=== PATIENT | female | born 1985 | race Caucasian/White ===

== ENCOUNTER 2017-08-24 18:34 | Emergency (ER) | payer OTHER ==
[~2017-08-24] VITALS: Ht 162.6 cm; Wt 74.8 kg
[2017-08-24] MEDS ORDERED: EPIPEN0.3 MG/0.1 IM (18:56)
[2017-08-24] MEDS ORDERED: LEVOXYL25 MCG PO (18:56)
[2017-08-24] MEDS ORDERED: HYDROCODONE-AP1 EAC6 PO (20:32)
[2017-08-24 20:35] VITALS: BP 92/53
== END 2017-08-24 20:35 | disposition home or self-care (01) ==
LOC: M.ERS 18:34
DX: R10.2 Pelvic and perineal pain (principal); M54.5 Low back pain; E03.9 Hypothyroidism, unspecified; Z91.030 Bee allergy status

== ENCOUNTER → 2017-09-12 | Outpatient (CLI) | payer OTHER ==
[~2017-09-12] MED LIST: EPIPEN0.3 MG/0.1 IM; HYDROCODONE-AP1 EAC6 PO; LEVOXYL25 MCG PO
== END ==
LOC: M.LAB 07:22
DX: Z31.41 Encounter for fertility testing (principal); E03.9 Hypothyroidism, unspecified

== ENCOUNTER → 2017-09-19 | Outpatient (CLI) | payer OTHER ==
[2017-09-19 07:58] LABS: HEMATOCRIT 40.3 % (37.0-47.0); HEMOGLOBIN 13.8 gm/dL (12.0-15.0); MCH 31.6 pg (26.0-34.0); MCHC 34.1 g/dL (28.0-37.0); MCV 92.6 fL (80.0-100.0); RBC 4.35 mil/uL (4.20-5.00); RDW-CV 12.4 % (10.5-14.5); WBC 3.9 thou/uL (4.0-11.0)
[2017-09-19 08:03] LABS: ALBUMIN 3.6 g/dL (3.4-5.0); ALKALINE PHOSPHATASE 42 U/L (46-116); ANION GAP 9 mmol/L (7-16); BUN 21 mg/dL (7-18); CALCIUM 8.8 mg/dL (8.5-10.1); CHLORIDE 104 mmol/L (98-107); CHOLESTEROL 140 mg/dL (<200); CO2 27 mmol/L (21-32); CREATININE 0.8 mg/dL (0.6-1.3); GLUCOSE 85 mg/dL (70-99); HDL CHOLESTEROL 45 mg/dL (>40); LDL CHOLESTEROL 88 mg/dL (<100); POTASSIUM 4.2 mmol/L (3.5-5.1); SERUM ASSESSMENT Clear; SGOT 22 U/L (15-37); SGPT 25 U/L (30-65); SODIUM 140 mmol/L (136-145); TC:HDL 3.1 Ratio (Not establshd); TOTAL BILIRUBIN 0.4 mg/dL (<0.1-1.0); TOTAL PROTEIN 7.3 g/dL (6.4-8.2); TRIGLYCERIDE 37 mg/dL (<150); VLDL 7 mg/dL (<40)
[2017-09-19 09:08] LABS: % SATURATION 27 % (20-39); IRON 94 ug/dL (50-175)
== END ==
LOC: M.LAB 07:34
PROVIDERS: Nurse Practitioner Family
DX: Z13.220 Encounter for screening for lipoid disorders (principal); L65.9 Nonscarring hair loss, unspecified; R53.83 Other fatigue; E03.9 Hypothyroidism, unspecified

== ENCOUNTER → 2017-09-25 | Outpatient (CLI) | payer OTHER | LOC: M.LAB 12:18 | DX: Z32.00 Encounter for pregnancy test, result unknown (principal) ==

== ENCOUNTER → 2017-11-09 | Outpatient (CLI) | payer OTHER | LOC: M.LAB 11:42 → M.CT 16:30 | DX: J32.9 Chronic sinusitis, unspecified (principal); H65.21 Chronic serous otitis media, right ear; E03.9 Hypothyroidism, unspecified; E28.2 Polycystic ovarian syndrome ==

== ENCOUNTER → 2018-03-13 | Outpatient (CLI) | payer OTHER | LOC: M.LAB 16:19 | DX: E03.9 Hypothyroidism, unspecified (principal) ==

== ENCOUNTER → 2018-03-28 | Outpatient (CLI) | payer OTHER ==
[2018-03-28 12:50] LABS: ABSOLUTE BASOPHILS 0.1 thou/uL (0.0-0.2); ABSOLUTE EOSINOPHILS 0.3 thou/uL (0.0-0.7); ABSOLUTE LYMPHOCYTES 1.3 thou/uL (0.8-5.3); ABSOLUTE MONOCYTES 0.4 thou/uL (0.0-1.2); ABSOLUTE NEUTROPHILS 3.9 thou/uL (1.6-8.1); EOSINOPHILS 4.5 %; HEMATOCRIT 39.2 % (37.0-47.0); HEMOGLOBIN 13.2 gm/dL (12.0-15.0); LYMPHOCYTES 22.1 %; MCH 31.4 pg (26.0-34.0); MCHC 33.6 g/dL (28.0-37.0); MCV 93.6 fL (80.0-100.0); MONOCYTES 6.7 %; MPV 8.8 fl. (7.2-11.1); NUCLEATED RBCS 0 /100WBC; PLATELET COUNT* 328 thou/uL (150-400); POLYS 65.7 %; RBC 4.19 mil/uL (4.20-5.00); RDW-CV 12.1 % (10.5-14.5); WBC 5.9 thou/uL (4.0-11.0)
[2018-03-28 16:47] LABS: ALBUMIN 3.3 g/dL (3.4-5.0); CALCIUM 8.8 mg/dL (8.5-10.1); CREATININE 0.7 mg/dL (0.6-1.3); POTASSIUM 4.1 mmol/L (3.5-5.1); TOTAL BILIRUBIN 0.3 mg/dL (<0.1-1.0); TOTAL PROTEIN 6.9 g/dL (6.4-8.2)
== END ==
LOC: M.LAB 06:43
PROVIDERS: Nurse Practitioner Family
DX: E03.9 Hypothyroidism, unspecified (principal); E04.1 Nontoxic single thyroid nodule; E07.89 Other specified disorders of thyroid; R00.2 Palpitations

== ENCOUNTER → 2018-03-29 | Outpatient (CLI) | payer OTHER | LOC: M.ULTRA 12:00 | DX: E04.1 Nontoxic single thyroid nodule (principal); E07.89 Other specified disorders of thyroid; R59.0 Localized enlarged lymph nodes ==

== ENCOUNTER → 2018-04-10 | Outpatient (CLI) | payer OTHER | LOC: M.LAB 08:35 | DX: E06.9 Thyroiditis, unspecified (principal) ==

== ENCOUNTER → 2018-04-26 | Outpatient (CLI) | payer OTHER | LOC: M.LAB 08:11 | DX: E06.1 Subacute thyroiditis (principal) ==

== ENCOUNTER → 2018-06-07 | Outpatient (CLI) | payer OTHER | LOC: M.LAB 07:44 | DX: E03.9 Hypothyroidism, unspecified (principal) ==

== ENCOUNTER → 2018-07-10 | Outpatient (CLI) | payer OTHER | LOC: M.LAB 08:15 | DX: E06.1 Subacute thyroiditis (principal) ==

== ENCOUNTER → 2018-09-03 | Outpatient (CLI) | payer OTHER ==
[2018-09-03 18:10] LABS: GLYCOHEMOGLOBIN (HGB A1C) 5.3 % (4.8-5.6); PROLACTIN 16.4 ng/mL (4.8-23.3); TESTOSTERONE 14 ng/dL (8-48)
[2018-09-04 05:09] LABS: RUBELLA IgG ANTIBODY* 1.84 index (Immune >0.99)
== END ==
LOC: M.LAB 08:18
PROVIDERS: Obstetrics & Gynecology Reproductive Endocrinology
DX: Z01.83 Encounter for blood typing (principal); Z11.59 Encounter for screening for other viral diseases; E28.2 Polycystic ovarian syndrome; E03.9 Hypothyroidism, unspecified

== ENCOUNTER → 2018-09-11 | Outpatient (CLI) | payer OTHER | LOC: M.LAB 15:51 | DX: Z13.21 Encounter for screening for nutritional disorder (principal); Z01.83 Encounter for blood typing ==

== ENCOUNTER → 2018-09-25 | Outpatient (CLI) | payer OTHER ==
[2018-09-26 18:09] LABS: HEPATITIS B SURFACE AG Negative (Negative)
[2018-09-27 03:09] LABS: HIV-1/HIV-2 ANTIBODY Non Reactive (Non Reactive)
[2018-09-27 14:04] LABS: HEMOGLOBIN 13.4 gm/dL (12.0-15.0); MCH 31.7 pg (26.0-34.0); MCHC 34.3 g/dL (28.0-37.0); MCV 92.5 fL (80.0-100.0); MPV 8.8 fl. (7.2-11.1); RBC 4.21 mil/uL (4.20-5.00); RDW-CV 12.8 % (10.5-14.5)
== END ==
LOC: M.LAB 15:50
PROVIDERS: Obstetrics & Gynecology Reproductive Endocrinology
DX: Z11.3 Encounter for screening for infections with a predominantly sexual mode of transmission (principal); Z13.0 Encounter for screening for diseases of the blood and blood-forming organs and certain disorders involving the immune mechanism

== ENCOUNTER → 2018-11-22 | Outpatient (CLI) | payer OTHER | LOC: M.LAB 08:15 | DX: E03.9 Hypothyroidism, unspecified (principal); Z86.39 Personal history of other endocrine, nutritional and metabolic disease ==

== ENCOUNTER → 2018-12-24 | Outpatient (CLI) | payer OTHER | LOC: M.LAB 13:51 | DX: E28.2 Polycystic ovarian syndrome (principal); M79.604 Pain in right leg ==

== ENCOUNTER → 2019-01-07 | Outpatient (CLI) | payer OTHER ==
[2019-01-07 16:25] LABS: ALBUMIN 3.6 g/dL (3.4-5.0); CREATININE 0.8 mg/dL (0.6-1.3); POTASSIUM 3.8 mmol/L (3.5-5.1); TOTAL BILIRUBIN 0.2 mg/dL (<0.1-1.0); TOTAL PROTEIN 7.2 g/dL (6.4-8.2)
== END ==
LOC: M.LAB 15:57
PROVIDERS: Internal Medicine
DX: D50.8 Other iron deficiency anemias (principal); R53.83 Other fatigue; E03.9 Hypothyroidism, unspecified

== ENCOUNTER → 2019-03-05 | Outpatient (CLI) | payer OTHER | LOC: M.LAB 10:49 | DX: Z13.21 Encounter for screening for nutritional disorder (principal); Z13.29 Encounter for screening for other suspected endocrine disorder ==

== ENCOUNTER → 2019-05-09 | Outpatient (CLI) | payer OTHER | LOC: M.LAB 16:36 | DX: E03.9 Hypothyroidism, unspecified (principal) ==

== ENCOUNTER → 2019-08-15 | Outpatient (CLI) | payer OTHER | LOC: M.LAB 11:23 | DX: E03.9 Hypothyroidism, unspecified (principal) ==

== ENCOUNTER → 2019-10-31 | Outpatient (CLI) | payer OTHER ==
[2019-10-31 14:43] LABS: ABSOLUTE BASOPHILS 0.1 thou/uL (0.0-0.2); ABSOLUTE EOSINOPHILS 0.2 thou/uL (0.0-0.7); ABSOLUTE LYMPHOCYTES 1.8 thou/uL (0.8-5.3); ABSOLUTE MONOCYTES 0.4 thou/uL (0.0-1.2); BASOPHILS 1.1 %; EOSINOPHILS 3.7 %; HEMATOCRIT 39.4 % (37.0-47.0); HEMOGLOBIN 14.2 gm/dL (12.0-15.0); LYMPHOCYTES 27.5 %; MCH 32.9 pg (26.0-34.0); MCV 91.5 fL (80.0-100.0); MONOCYTES 6.4 %; NUCLEATED RBCS 0 /100WBC; PLATELET COUNT* 294 thou/uL (150-400); POLYS 61.3 %; RBC 4.31 mil/uL (4.20-5.00); RDW-CV 12.5 % (10.5-14.5); WBC 6.5 thou/uL (4.0-11.0)
[2019-11-01 06:06] LABS: HIV-1/HIV-2 ANTIBODY Non Reactive (Non Reactive)
== END ==
LOC: M.LAB 14:04
PROVIDERS: ATTEND Obstetrics & Gynecology
DX: Z36.9 Encounter for antenatal screening, unspecified (principal)

== ENCOUNTER → 2019-12-09 | Outpatient (CLI) | payer OTHER | LOC: M.LAB 14:17 | PROVIDERS: ATTEND Internal Medicine | DX: E03.9 Hypothyroidism, unspecified (principal); Z20.828 Contact with and (suspected) exposure to other viral communicable diseases ==

== ENCOUNTER → 2020-02-18 | Outpatient (CLI) | payer OTHER ==
[2020-02-18 08:11] LABS: ABSOLUTE EOSINOPHILS 0.2 thou/uL (0.0-0.7); ABSOLUTE LYMPHOCYTES 1.5 thou/uL (0.8-5.3); ABSOLUTE MONOCYTES 0.4 thou/uL (0.0-1.2); ABSOLUTE NEUTROPHILS 5.5 thou/uL (1.6-8.1); BASOPHILS 0.5 %; EOSINOPHILS 2.5 %; HEMATOCRIT 33.8 % (37.0-47.0); HEMOGLOBIN 11.8 gm/dL (12.0-15.0); LYMPHOCYTES 19.3 %; MCH 32.6 pg (26.0-34.0); MCV 93.2 fL (80.0-100.0); MPV 7.1 fl. (7.2-11.1); NUCLEATED RBCS 0 /100WBC; PLATELET COUNT* 289 thou/uL (150-400); POLYS 72.7 %; RBC 3.63 mil/uL (4.20-5.00); WBC 7.6 thou/uL (4.0-11.0)
[2020-02-18 08:23] LABS: ALBUMIN 2.6 g/dL (3.4-5.0); ALKALINE PHOSPHATASE 59 U/L (46-116); ANION GAP 6 mmol/L (7-16); BUN 8 mg/dL (7-18); CALCIUM 7.7 mg/dL (8.5-10.1); CHLORIDE 104 mmol/L (98-107); CO2 27 mmol/L (21-32); CREATININE 0.6 mg/dL (0.6-1.3); GLUCOSE 131 mg/dL (70-99); POTASSIUM 3.5 mmol/L (3.5-5.1); SGOT 24 U/L (15-37); SGPT 21 U/L (30-65); SODIUM 137 mmol/L (136-145); TOTAL BILIRUBIN 0.3 mg/dL (<0.1-1.0); TOTAL PROTEIN 6.8 g/dL (6.4-8.2)
== END ==
LOC: M.LAB 06:48
PROVIDERS: ATTEND Obstetrics & Gynecology
DX: Z36.9 Encounter for antenatal screening, unspecified (principal)

== ENCOUNTER → 2020-03-30 | Outpatient (CLI) | payer OTHER ==
[2020-03-30 12:39] LABS: ABSOLUTE BASOPHILS 0.1 thou/uL (0.0-0.2); ABSOLUTE EOSINOPHILS 0.2 thou/uL (0.0-0.7); ABSOLUTE LYMPHOCYTES 1.4 thou/uL (0.8-5.3); ABSOLUTE MONOCYTES 0.5 thou/uL (0.0-1.2); ABSOLUTE NEUTROPHILS 5.3 thou/uL (1.6-8.1); BASOPHILS 0.8 %; EOSINOPHILS 2.2 %; HEMATOCRIT 36.8 % (37.0-47.0); HEMOGLOBIN 12.9 gm/dL (12.0-15.0); LYMPHOCYTES 18.9 %; MCH 32.5 pg (26.0-34.0); MCV 92.9 fL (80.0-100.0); MONOCYTES 6.4 %; MPV 7.2 fl. (7.2-11.1); NUCLEATED RBCS 0 /100WBC; PLATELET COUNT* 265 thou/uL (150-400); POLYS 71.7 %; RBC 3.97 mil/uL (4.20-5.00); RDW-CV 13.3 % (10.5-14.5); WBC 7.4 thou/uL (4.0-11.0)
[2020-03-30 13:08] LABS: % SATURATION 13 % (20-39); IRON 74 ug/dL (50-175)
== END ==
LOC: M.LAB 12:24
PROVIDERS: ATTEND Registered Nurse
DX: Z34.90 Encounter for supervision of normal pregnancy, unspecified, unspecified trimester (principal); R25.2 Cramp and spasm; R53.83 Other fatigue; R79.0 Abnormal level of blood mineral; Z36.9 Encounter for antenatal screening, unspecified; Z3A.00 Weeks of gestation of pregnancy not specified

== ENCOUNTER → 2020-07-02 | Outpatient (CLI) | payer OTHER | LOC: M.LAB 17:00 | PROVIDERS: ATTEND Obstetrics & Gynecology | DX: E03.9 Hypothyroidism, unspecified (principal) ==

== ENCOUNTER → 2020-07-13 | Outpatient (CLI) | payer OTHER | LOC: M.ULTRA 07:30 | PROVIDERS: ATTEND Nurse Practitioner Family | DX: R10.11 Right upper quadrant pain (principal) ==

== ENCOUNTER → 2020-07-29 | Outpatient (CLI) | payer OTHER ==
[2020-07-29 08:34] LABS: HEMATOCRIT 41.8 % (37.0-47.0); MCH 30.5 pg (26.0-34.0); MCHC 33.6 g/dL (28.0-37.0); MCV 90.8 fL (80.0-100.0); MPV 7.5 fl. (7.2-11.1); NUCLEATED RBCS 0 /100WBC; PLATELET COUNT* 307 thou/uL (150-400); RDW-CV 12.1 % (10.5-14.5); WBC 6.6 thou/uL (4.0-11.0)
[2020-07-29 08:44] LABS: ALBUMIN 3.6 g/dL (3.4-5.0); ALKALINE PHOSPHATASE 76 U/L (46-116); AMYLASE 84 U/L (25-115); ANION GAP 7 mmol/L (7-16); BUN 12 mg/dL (7-18); CHLORIDE 103 mmol/L (98-107); CHOLESTEROL 215 mg/dL (<200); CO2 30 mmol/L (21-32); CREATININE 0.8 mg/dL (0.6-1.3); GLUCOSE 88 mg/dL (70-99); HDL CHOLESTEROL 50 mg/dL (>40); LDL CHOLESTEROL 143 mg/dL (<100); POTASSIUM 4.1 mmol/L (3.5-5.1); SERUM ASSESSMENT Clear; SGOT 40 U/L (15-37); SGPT 78 U/L (30-65); SODIUM 140 mmol/L (136-145); TC:HDL 4.3 Ratio (Not establshd); TOTAL BILIRUBIN 0.4 mg/dL (<0.1-1.0); TOTAL PROTEIN 7.5 g/dL (6.4-8.2); TRIGLYCERIDE 110 mg/dL (<150); VLDL 22 mg/dL (<40)
[2020-07-29 09:14] LABS: ABSOLUTE EOSINOPHILS 1.7 thou/uL (0.0-0.7); ABSOLUTE LYMPHOCYTES 2.2 thou/uL (0.8-5.3); ABSOLUTE MONOCYTES 0.3 thou/uL (0.0-1.2); ABSOLUTE NEUTROPHILS 2.5 thou/uL (1.6-8.1)
[2020-07-29 09:15] LABS: ANISOCYTOSIS 1+; PLATELET ESTIMATE ADEQUATE; POIKILOCYTOSIS 1+
[2020-07-29 21:06] LABS: THYROID PEROXIDASE (TPO) AB < 6 IU/mL (0-34)
== END ==
LOC: M.LAB 08:07
PROVIDERS: ATTEND Family Medicine
DX: K29.70 Gastritis, unspecified, without bleeding (principal)

== ENCOUNTER → 2020-08-24 | Outpatient (CLI) | payer OTHER ==
[2020-08-24 16:24] LABS: CALCIUM 8.9 mg/dL (8.5-10.1); CREATININE 0.8 mg/dL (0.6-1.3); POTASSIUM 4.2 mmol/L (3.5-5.1); TOTAL BILIRUBIN 0.4 mg/dL (<0.1-1.0); TOTAL PROTEIN 7.8 g/dL (6.4-8.2)
[2020-08-24 16:51] LABS: % SATURATION 15 % (20-39); IRON 58 ug/dL (50-175)
[2020-08-25 10:08] LABS: IgA 151 mg/dL (87-352)
[2020-08-26 02:06] LABS: HEPATITIS B SURFACE AG Negative (Negative)
[2020-08-26 21:05] LABS: ANA INTERPRETATION Positive (())
== END ==
LOC: M.LAB 15:53
PROVIDERS: ATTEND Internal Medicine Gastroenterology
DX: R94.5 Abnormal results of liver function studies (principal)

== ENCOUNTER → 2020-09-03 | Outpatient (CLI) | payer OTHER | LOC: M.LAB 10:15 | PROVIDERS: ATTEND Family Medicine | DX: R79.89 Other specified abnormal findings of blood chemistry (principal) ==

== ENCOUNTER → 2020-10-01 | Outpatient (CLI) | payer OTHER ==
[2020-10-01 08:49] LABS: ALBUMIN 4.2 g/dL (3.4-5.0); CALCIUM 9.1 mg/dL (8.5-10.1); CREATININE 0.8 mg/dL (0.6-1.3); DIRECT BILIRUBIN 0.1 mg/dL (<0.1-0.3); POTASSIUM 4.2 mmol/L (3.5-5.1); TOTAL BILIRUBIN 0.4 mg/dL (<0.1-1.0); TOTAL PROTEIN 7.9 g/dL (6.4-8.2)
[2020-10-01 21:06] LABS: COMPLEMENT-C4 30 mg/dL (12-38)
== END ==
LOC: M.LAB 08:15
PROVIDERS: ATTEND Nurse Practitioner Family
DX: E03.9 Hypothyroidism, unspecified (principal); E78.5 Hyperlipidemia, unspecified; R94.5 Abnormal results of liver function studies; M79.641 Pain in right hand; R76.8 Other specified abnormal immunological findings in serum

== ENCOUNTER → 2020-11-19 | Outpatient (CLI) | payer OTHER | LOC: M.ULTRA 10:37 | PROVIDERS: ATTEND Nurse Practitioner Women's Health | DX: N60.02 Solitary cyst of left breast (principal); N63.20 Unspecified lump in the left breast, unspecified quadrant ==

== ENCOUNTER → 2021-03-29 | Outpatient (CLI) | payer OTHER | LOC: M.LAB 12:15 | PROVIDERS: ATTEND Internal Medicine Endocrinology, Diabetes & Metabolism | DX: E03.9 Hypothyroidism, unspecified (principal) ==

== ENCOUNTER → 2021-05-06 | Outpatient (CLI) | payer OTHER ==
[2021-05-06 15:52] LABS: ABSOLUTE EOSINOPHILS 0.3 thou/uL (0.0-0.7); ABSOLUTE LYMPHOCYTES 1.7 thou/uL (0.8-5.3); ABSOLUTE MONOCYTES 0.4 thou/uL (0.0-1.2); ABSOLUTE NEUTROPHILS 2.6 thou/uL (1.6-8.1); EOSINOPHILS 5.5 %; HEMATOCRIT 41.7 % (37.0-47.0); LYMPHOCYTES 34.3 %; MCH 30.2 pg (26.0-34.0); MCHC 33.7 g/dL (28.0-37.0); MCV 89.8 fL (80.0-100.0); MONOCYTES 7.1 %; MPV 8.3 fl. (7.2-11.1); NUCLEATED RBCS 0 /100WBC; PLATELET COUNT* 264 thou/uL (150-400); POLYS 52.1 %; RBC 4.64 mil/uL (4.20-5.00); RDW-CV 13.3 % (10.5-14.5)
[2021-05-06 16:20] LABS: ALBUMIN 3.9 g/dL (3.4-5.0); CALCIUM 8.7 mg/dL (8.5-10.1); CREATININE 0.7 mg/dL (0.6-1.3); POTASSIUM 4.4 mmol/L (3.5-5.1); TOTAL BILIRUBIN 0.4 mg/dL (<0.1-1.0); TOTAL PROTEIN 7.7 g/dL (6.4-8.2)
== END ==
LOC: M.LAB 15:36
PROVIDERS: ATTEND Internal Medicine Cardiovascular Disease
DX: R53.83 Other fatigue (principal); E03.9 Hypothyroidism, unspecified; R20.2 Paresthesia of skin; R19.7 Diarrhea, unspecified; R10.84 Generalized abdominal pain; O92.4 Hypogalactia; Z78.9 Other specified health status